=== PATIENT | female | born 1995 | race African-American/Black ===

== ENCOUNTER 2022-04-07 12:06 | Emergency (ER) | payer MEDICAID ==
[~2022-04-07] VITALS: Ht 165.1 cm; Wt 95.0 kg
[2022-04-07 12:42] VITALS: BP 128/53
[2022-04-07] MEDS ORDERED: IBUPROFEN 800MG TABLET PO ONE (14:00)
[2022-04-07] MEDS ORDERED: IBUP-2030 MT (14:26)
== END 2022-04-07 15:22 | disposition home or self-care (01) ==
LOC: ER 13:57
DX: S60.222A Contusion of left hand, initial encounter (principal); S50.12XA Contusion of left forearm, initial encounter; S50.11XA Contusion of right forearm, initial encounter; V43.52XA Car driver injured in collision with other type car in traffic accident, initial encounter; W22.11XA Striking against or struck by driver side automobile airbag, initial encounter; Y93.89 Activity, other specified; Y92.488 Other paved roadways as the place of occurrence of the external cause
CPT/HCPCS: 73130; 99283